=== PATIENT | female | born 1960 | race American Indian/Alaskan Native ===

== ENCOUNTER 2018-01-17 23:59 | Emergency (ER) | payer OTHER ==
[2018-01-18] VITALS: BMI 27.8
[2018-01-18 00:37] VITALS: RESP 18
--- NOTE | 2018-01-18 00:51 | ED PDOC ---
Arrival/HPI - General Historian: Patient - History of Present Illness Narrative History of Present Illness (Text): 01/18/18 00:47 57yo female with pmhx of Diabetes, hypelipdemia who present with complaint of left leg pain s/p trauma 3weeks ago. States pain radiates from her foot to her upper thigh. Notes worse focal pain over her distal posterior left thigh. States she saw her PMD and was given Gabapentin and Mobic. States taking it without relieve. She has been ambulating. Denies chest pain, SOB, diaphoresis, swelling, redness, any other complaint. <Kate Segundo A - Last Filed: 01/18/18 02:03> <Isauro Beal - Last Filed: 01/18/18 02:11> - General Chief Complaint: Lower Extremity Problem/Injury Past Medical History - Provider Review Nursing Documentation Reviewed: Yes - Infectious Disease Hx of Infectious Diseases: None - Past Medical History Past Medical History: No Previous - Cardiac Hx Cardiac Disorders: Yes Hx Hypertension: Yes - Pulmonary Hx Respiratory Disorders: No - Neurological Hx Neurological Disorder: Yes (PERIPHERAL NEUROPATHY) - HEENT Hx HEENT Disorder: No - Renal Hx Renal Disorder: No - Endocrine/Metabolic Hx Endocrine Disorders: Yes Hx Diabetes Mellitus Type 2: Yes - Hematological/Oncological Hx Blood Disorders: No Hx Blood Transfusions: No Hx Blood Transfusion Reaction: No - Integumentary Hx Dermatological Disorder: No - Musculoskeletal/Rheumatological Hx Musculoskeletal Disorders: Yes Hx Back Pain: Yes Hx Falls: No Hx Rheumatoid Arthritis: Yes - Gastrointestinal Hx Gastrointestinal Disorders: No - Genitourinary/Gynecological Hx Genitourinary Disorders: Yes Hx Urinary Tract Infection: Yes Other/Comment: Prolapsed bladder - Psychiatric Hx Psychophysiologic Disorder: No Hx Substance Use: No - Surgical History Hx Tubal Ligation: Yes Other/Comment: BLADDER PROLAPSE REPAIR - Anesthesia Hx Anesthesia: Yes Hx Anesthesia Reactions: No Hx Malignant Hyperthermia: No - Suicidal Assessment Feels Threatened In Home Enviroment: No <Kate Segundo A - Last Filed: 01/18/18 02:03> Family/Social History - Physician Review Nursing Documentation Reviewed: Yes Family/Social History: Unknown Family HX Smoking Status: Former Smoker Hx Alcohol Use: No Hx Substance Use: No Hx Substance Use Treatment: No <Kate Segundo A - Last Filed: 01/18/18 02:03> Allergies/Home Meds <Kate Segundo - Last Filed: 01/18/18 02:03> <Isauro Beal - Last Filed: 01/18/18 02:11> Allergies/Adverse Reactions: Allergies No Known Allergies Allergy (Verified 03/22/16 14:07) Home Medications: Home Meds Medication Instructions Recorded Confirmed Gabapentin [Neurontin] 1 tab PO DAILY 05/30/17 01/18/18 Simvastatin [Zocor] 1 tab PO DAILY 05/30/17 01/18/18 metFORMIN [glucOPHAGE] 1 tab PO DAILY 05/30/17 01/18/18 Review of Systems - Physician Review All systems were reviewed & negative as marked: Yes - Review of Systems Constitutional: Normal Eyes: Normal ENT: Normal Respiratory: Normal Cardiovascular: Normal Gastrointestinal: Normal Genitourinary Female: Normal Musculoskeletal: Arthralgias (LEft leg pain) Skin: Normal Neurological: Normal Endocrine: Normal Hemo/Lymphatic: Normal Psychiatric: Normal <Kate Segundo A - Last Filed: 01/18/18 02:03> Physical Exam Vital Signs Reviewed: Yes Vital Signs Temp Pulse Resp BP Pulse Ox 01/18/18 00:37 97.1 F L 73 18 138/88 100 Temperature: Afebrile Blood Pressure: Normal Pulse: Regular Respiratory Rate: Normal Appearance: Positive for: Well-Appearing, Non-Toxic, Comfortable Pain Distress: None Mental Status: Positive for: Alert and Oriented X 3 - Systems Exam Head: Present: Atraumatic, Normocephalic Pupils: Present: PERRL Extroacular Muscles: Present: EOMI Conjunctiva: Present: Normal Mouth: Present: Moist Mucous Membranes Neck: Present: Normal Range of Motion Respiratory/Chest: Present: Clear to Auscultation, Good Air Exchange. No: Respiratory Distress, Accessory Muscle Use Cardiovascular: Present: Regular Rate and Rhythm, Normal S1, S2. No: Murmurs Abdomen: No: Tenderness, Distention, Peritoneal Signs Back: Present: Normal Inspection Upper Extremity: Present: Normal Inspection. No: Cyanosis, Edema Lower Extremity: Present: NORMAL PULSES, Normal ROM, Tenderness (Focal tenderness over left posterior distal thigh), Neurovascularly Intact. No: Edema, CALF TENDERNESS, Erythema, Deformity, Temperature Abnormalties Neurological: Present: GCS=15, CN II-XII Intact, Speech Normal Skin: Present: Warm, Dry, Normal Color. No: Rashes Psychiatric: Present: Alert, Oriented x 3, Normal Insight, Normal Concentration <Kate Segundo - Last Filed: 01/18/18 02:03> Vital Signs Temp Pulse Resp BP Pulse Ox 01/18/18 00:37 97.1 F L 73 18 138/88 100 <Isauro Beal - Last Filed: 01/18/18 02:11> Medical Decision Making ED Course and Treatment: 01/18/18 02:08 PT in ED for stated history. She ambulated to ED. she does not appear in any distress in ED. Toradol Left knee xray Left leg Doppler US PEr US preliminary result - US is negative for DVT Left knee - Osteophyte on the lateral aspect. No acute finding Result was DW the pt and Tramadol rx was given. Referred to ortho. - RAD Interpretation Radiology Orders: 01/18/18 00:46 DUPLEX LOWER EXTRM VEIN LEFT [US] Stat 01/18/18 00:47 KNEE WITH PATELLA LEFT 3 VIEW [RAD] Stat <Kate Segundo A - Last Filed: 01/18/18 02:03> - RAD Interpretation Radiology Orders: 01/18/18 00:46 DUPLEX LOWER EXTRM VEIN LEFT [US] Stat 01/18/18 00:47 KNEE WITH PATELLA LEFT 3 VIEW [RAD] Stat - Medication Orders Current Medication Orders: Discontinued Medications Ketorolac Tromethamine (Toradol) 60 mg IM STAT STA Stop: 01/18/18 01:25 Last Admin: 01/18/18 01:35 Dose: 60 mg MAR Pain Assessment Document 01/18/18 01:35 ANNAMARIA (Rec: 01/18/18 01:35 Cong [id number]) Pain Reassessment Is this a pain reassessment? No Sleep Is patient sleeping during reassessment? No Presence of Pain Presence of Pain Yes Pain Scale Used Protocol: PSCALES Pain Scale Used Numeric Location Left, Right or Bilateral Right Pain Location Body Site Hip Description Description Throbbing Intensity of Pain at present 8 Acceptable Level of Pain 0 Pain Behavior Irritability Aggravating Factors ADL's IM Administration Charges Document 01/18/18 01:35 ANNAMARIA (Rec: 01/18/18 01:35 ANNAMARIA [id number]) Injection Site MAR Injection Site Left Deltoid Charges for Administration # of IM Administrations 1 <Isauro Beal - Last Filed: 01/18/18 02:11> - PA / FOILING MACHINE ADJUSTER / Resident Statement MD/DO has reviewed & agrees with the documentation as recorded. <LianIsauro - Last Filed: 01/18/18 02:11> Disposition/Present on Arrival - Present on Arrival Any Indicators Present on Arrival: No History of DVT/PE: No History of Uncontrolled Diabetes: No Urinary Catheter: No History of Decub. Ulcer: No History Surgical Site Infection Following: None - Disposition Have Diagnosis and Disposition been Completed?: Yes Disposition Time: 02:05 Patient Plan: Discharge <Kate Segundo - Last Filed: 01/18/18 02:03> <LianIsauro - Last Filed: 01/18/18 02:11> - Disposition Diagnosis: Leg pain Disposition: HOME/ ROUTINE Condition: STABLE Discharge Instructions (ExitCare): Muscle and Bone Pain (DC) Additional Instructions: Follow up with your doctor/Orthopedist Return to ED for any new or worsening symptoms Prescriptions: traMADol [Ultram] 50 mg PO Q8 #7 tab Referrals: Seamus hOara MD [Staff Provider] - Follow up with primary Forms: [employer] (Salvadorean)
[2018-01-18 02:33] VITALS: BP 131/83; PULSE 81; TEMP 97.9; O2SAT 97
--- NOTE | 2018-01-18 07:37 | RAD ---
Date of service: 01/18/2018 PROCEDURE: Left Knee Radiographs. HISTORY: Pain. COMPARISON: None. FINDINGS: BONES: No acute fracture or destructive bony lesion identified. A small exostosis under 1 cm size seen related to the medial proximal metaphysis of the left tibia. JOINTS: Joint space narrowing is appreciated at the medial femorotibial compartment compatible degenerative joint disease with minimal osteophytes at the patellofemoral articulation. No subluxation or dislocation. JOINT EFFUSION: None. OTHER FINDINGS: Punctate calcifications seen the medial upper calf subcutaneous fat. IMPRESSION: No acute fracture or dislocation left knee. Mild degenerative joint disease, bicompartmental. Small exostosis medial proximal metaphysis left tibia.
--- NOTE | 2018-01-18 10:51 | US ---
PROCEDURE: Left lower extremity venous US HISTORY: Leg pain and swelling. Evaluate for DVT. PHYSICIAN(S): Vamshi Wilekrson MD. TECHNIQUE: Duplex sonography and color-flow Doppler with graded compression were used to evaluate the deep venous system of the left lower extremity. FINDINGS: The visualized deep venous system of the left lower extremity is sonographically normal and compressible. Normal wave forms and augmentation are seen. There is no sonographic evidence for deep venous thrombosis in the visualized segments of the left lower extremity. IMPRESSION: 1. No sonographic evidence for deep venous thrombosis in the visualized segments of the left lower extremity.
== END 2018-01-18 02:33 | disposition home or self-care (01) ==
LOC: ED 23:59
DX: M79.605 Pain in left leg (principal); I10 Essential (primary) hypertension; E11.9 Type 2 diabetes mellitus without complications; Z87.891 Personal history of nicotine dependence
CPT/HCPCS: 73562; 93971; 96372; 99283; J1885

== ENCOUNTER 2018-02-18 10:40 | Emergency (ER) | payer OTHER ==
[2018-02-18 10:41] VITALS: BMI 27.8
[2018-02-18 11:08] VITALS: RESP 18; TEMP 97.6; O2SAT 99
--- NOTE | 2018-02-18 12:30 | CT ---
Date of service: 02/18/2018 PROCEDURE: CT Lumbar Spine without contrast HISTORY: bilateral leg pain, paresthesias COMPARISON: Correlations made to CT scan of the abdomen pelvis dated 04/05/2014. TECHNIQUE: Axial computed tomography images were obtained of the lumbar spine without the use of intravenous contrast. Coronal and sagittal reformatted images were created and reviewed. Radiation dose: Total exam DLP = 2196.42 mGy-cm. This CT exam was performed using one or more of the following dose reduction techniques: Automated exposure control, adjustment of the mA and/or kV according to patient size, and/or use of iterative reconstruction technique. FINDINGS: VERTEBRAE: Unremarkable. No fracture. Normal alignment. DISCS/SPINAL CANAL/NEURAL FORAMINA: L1-2: Mild broad-based disc bulge. L2-3: Mild broad-based disc bulge L3-4: Mild broad-based disc bulge. L4-5: Mild broad-based disc bulge. L5-S1: Mild broad-based disc bulge. PARASPINAL SOFT TISSUES: Unremarkable. OTHER FINDINGS: None. IMPRESSION: No acute fracture. Mild multilevel degenerative changes.
[2018-02-18 13:05] LABS: BASO # 0.01 K/mm3 (0.0-2.0); BASO % 0.2 % (0.0-3.0); EOS # 0.1 (0.0-0.7); EOS % 1.3 % (1.5-5.0); GRAN # 2.36 (1.4-6.5); GRAN % 49.2 % (50.0-68.0); HEMOGLOBIN 11.3 g/dL (12.0-16.0); LYMPH # 2.2 (1.2-3.4); LYMPH % 44.9 % (22.0-35.0); MEAN CELL VOLUME 92.8 fl (80.0-105.0); MEAN CORPUSCULAR HEMOGLOBIN 30.1 pg (25.0-35.0); MEAN CORPUSCULAR HGB CONC 32.5 g/dl (31.0-37.0); MEAN PLATELET VOLUME 9.1 fl (7.0-11.0); MONO # 0.2 (0.1-0.6); MONO % 4.4 % (1.0-6.0); RBC 3.75 10^6/uL (3.5-6.1); RED CELL DISTRIBUTION WIDTH 14.1 % (11.5-14.5); URINE BILIRUBIN NEGATIVE (NEGATIVE); URINE BLOOD NEGATIVE (NEGATIVE); URINE GLUCOSE (UA) NEGATIVE (NEGATIVE); URINE LEUKOCYTE ESTERASE NEGATIVE Leu/uL (NEGATIVE); URINE PROTEIN NEGATIVE mg/dL (<30 mg/dL); URINE UROBILINOGEN 0.2 E.U./dL (<1 E.U./dL); WHITE BLOOD COUNT 4.8 10^3/uL (4.5-11.0)
[2018-02-18 13:06] LABS: URINE APPEARANCE CLEAR (CLEAR); URINE COLOR YELLOW (YELLOW)
--- NOTE | 2018-02-18 13:07 | ED PDOC ---
Arrival/HPI - General Chief Complaint: Lower Extremity Problem/Injury Time Seen by Provider: 02/18/18 11:15 Historian: Patient - History of Present Illness Narrative History of Present Illness (Text): 58 year old female with past medical history of diabetes and rheumatoid arthritis presents to the emergency department complaining of bilateral leg pain and bilateral foot paresthesias. Patient states she awoke this morning with w orsened leg pain compared to her chronic pain along with worsened peripheral neuropathy, in Gabapentin, not taken today. Describes the neuropathy as a burning sensation on the soles of her feet, equal bilaterally. Patient states she was told she has rheumatoid arthritis recently by her primary doctor. Currently taking Mobic with some relief. States the pain is typically in her right leg but today it was in both. Described as an aching that starts in her feet and shoots up both of her legs, making it difficult to walk. She's compliant with her diabetes medication and checks her sugar daily at home. Denies fevers, chills, numbness, weakness, bowel/bladder incontinence, back pain, abdominal pain, saddle anesthesia, N/V, urinary symptoms, chest pain, SOB, any other associated symptoms. PMD: Rodney Past Medical History - Provider Review Nursing Documentation Reviewed: Yes - Infectious Disease Hx of Infectious Diseases: None - Reproductive Menopause: Yes - Past Medical History Past Medical History: No Previous - Cardiac Hx Cardiac Disorders: Yes Hx Hypertension: Yes - Pulmonary Hx Respiratory Disorders: No - Neurological Hx Neurological Disorder: Yes (PERIPHERAL NEUROPATHY) - HEENT Hx HEENT Disorder: No - Renal Hx Renal Disorder: No - Endocrine/Metabolic Hx Endocrine Disorders: Yes Hx Diabetes Mellitus Type 2: Yes - Hematological/Oncological Hx Blood Disorders: No Hx Blood Transfusions: No Hx Blood Transfusion Reaction: No - Integumentary Hx Dermatological Disorder: No - Musculoskeletal/Rheumatological Hx Musculoskeletal Disorders: Yes Hx Back Pain: Yes Hx Falls: No Hx Rheumatoid Arthritis: Yes - Gastrointestinal Hx Gastrointestinal Disorders: No - Genitourinary/Gynecological Hx Genitourinary Disorders: Yes Hx Urinary Tract Infection: Yes Other/Comment: Prolapsed bladder - Psychiatric Hx Psychophysiologic Disorder: No Hx Substance Use: No - Surgical History Hx Tubal Ligation: Yes Other/Comment: BLADDER PROLAPSE REPAIR - Anesthesia Hx Anesthesia: Yes Hx Anesthesia Reactions: No Hx Malignant Hyperthermia: No - Suicidal Assessment Feels Threatened In Home Enviroment: No Family/Social History - Physician Review Nursing Documentation Reviewed: Yes Family/Social History: No Known Family HX Smoking Status: Former Smoker Hx Alcohol Use: No Hx Substance Use: No Hx Substance Use Treatment: No Allergies/Home Meds Allergies/Adverse Reactions: Allergies No Known Allergies Allergy (Verified 02/18/18 11:08) Home Medications: Home Meds Medication Instructions Recorded Confirmed Gabapentin [Neurontin] 1 tab PO DAILY 05/30/17 02/18/18 Simvastatin [Zocor] 1 tab PO DAILY 05/30/17 02/18/18 metFORMIN [glucOPHAGE] 1 tab PO DAILY 05/30/17 02/18/18 Meloxicam [Mobic] 15 mg PO Q8 PRN 02/18/18 02/18/18 Nitrofurantoin Macrocrystals 100 mg PO Q12 02/18/18 02/18/18 [Macrobid] Review of Systems - Physician Review All systems were reviewed & negative as marked: Yes - Review of Systems Constitutional: Normal. absent: Fevers Eyes: Normal. absent: Vision Changes ENT: Normal. absent: Sore Throat, Sinus Congestion Respiratory: Normal. absent: SOB, Cough Cardiovascular: Normal. absent: Chest Pain, Palpitations, Syncope Gastrointestinal: Normal. absent: Abdominal Pain, Nausea, Vomiting Genitourinary Female: Normal. absent: Dysuria, Frequency Musculoskeletal: Arthralgias (bilateral leg pain). absent: Back Pain Skin: Normal. absent: Rash Neurological: Gait Changes (secondary to pain), Other (bilateral feet paresthesias). absent: Headache, Dizziness, Focal Weakness, Disequilibrium Endocrine: Normal Hemo/Lymphatic: Normal Psychiatric: Normal Physical Exam Vital Signs Reviewed: Yes Vital Signs Temp Pulse Resp BP Pulse Ox 02/18/18 11:05 97.6 F 71 18 128/76 99 Temperature: Afebrile Blood Pressure: Normal Pulse: Regular Respiratory Rate: Normal Appearance: Positive for: Well-Appearing, Non-Toxic, Comfortable Pain Distress: None Mental Status: Positive for: Alert and Oriented X 3 - Systems Exam Head: Present: Atraumatic, Normocephalic Pupils: Present: PERRL Extroacular Muscles: Present: EOMI Conjunctiva: Present: Normal Mouth: Present: Moist Mucous Membranes Neck: Present: Normal Range of Motion. No: Meningeal Signs, MIDLINE TENDERNESS Respiratory/Chest: Present: Clear to Auscultation, Good Air Exchange. No: Respiratory Distress, Accessory Muscle Use Cardiovascular: Present: Regular Rate and Rhythm, Normal S1, S2, Peripheal Pulses Present. No: Murmurs Abdomen: Present: Normal Bowel Sounds. No: Tenderness, Distention, Peritoneal Signs, Rebound, Guarding Back: Present: Normal Inspection. No: CVA Tenderness, Midline Tenderness, Paraspinal Tenderness Upper Extremity: Present: Normal Inspection, Normal ROM, NORMAL PULSES, N eurovascularly Intact, Capillary Refill < 2s. No: Cyanosis, Edema Lower Extremity: Present: Normal Inspection, NORMAL PULSES, Normal ROM, Tenderness (bilateral calves), Neurovascularly Intact, Capillary Refill < 2 s. No: Edema, Swelling Neurological: Present: GCS=15, CN II-XII Intact, Speech Normal, Motor Func Grossly Intact, Normal Sensory Function, Gait Normal Skin: Present: Warm, Dry, Normal Color. No: Rashes Lymphatic: No: Cervical Adenopathy Psychiatric: Present: Alert, Oriented x 3, Normal Insight, Normal Concentration, Normal Affect, Normal Mood Medical Decision Making ED Course and Treatment: Initial Plan: * CBC, CMP * UA, culture * CT Lumbar Spine * Bilateral Lower Extremity Duplex * Toradol * Reassess and Disposition 13:06 Patient reports significantly decreased pain to bilateral legs after medication Labwork unremarkable Duplex preliminary read negative for DVT CT Lumbar Spine shows degenerative changes and bulging discs Plan of care discussed with patient, and strict instructions given regarding prescriptions, importance of follow up, and signs to return to Emergency Department, to include worsening pain, bowel/bladder incontinence, saddle anesthesia, numbness, weakness, or any other new/worsening symptoms. Patient verbalizes understanding of discussion. Patient A&Ox3, ambulating with steady gait without assistance, vital signs stable for discharge home. - Lab Interpretations Lab Results: 02/18/18 13:00 Lab Results 02/18/18 13:00: Urine Color Yellow, Urine Appearance Clear, Urine pH 6.0, Ur Spe cific [place] 1.025, Urine Protein Negative, Urine Glucose (UA) Negative, Urine Ketones Negative, Urine Blood Negative, Urine Nitrate Negative, Urine Bilirubin Negative, Urine Urobilinogen 0.2, Ur Leukocyte Esterase Negative 02/18/18 13:00: WBC 4.8, RBC 3.75, Hgb 11.3 L, Hct 34.8 L, MCV 92.8, MCH 30.1, MCHC 32.5, RDW 14.1, Plt Count 259, MPV 9.1, Gran % 49.2 L, Lymph % (Auto) 44.9 H, [place] % (Auto) 4.4, Eos % (Auto) 1.3 L, Baso % (Auto) 0.2, Gran # 2.36, Lymph # (Auto) 2.2, [place] # (Auto) 0.2, Eos # (Auto) 0.1, Baso # (Auto) 0.01 - RAD Interpretation Narrative RAD Interpretations (Text): 02/18/18 13:[address]: FINDINGS: VERTEBRAE: Unremarkable. No fracture. Normal alignment. DISCS/SPINAL CANAL/NEURAL FORAMINA: L1-2: Mild broad-based disc bulge. L2-3: Mild broad-based disc bulge L3-4: Mild broad-based disc bulge. L4-5: Mild broad-based disc bulge. L5-S1: Mild broad-based disc bulge. PARASPINAL SOFT TISSUES: Unremarkable. OTHER FINDINGS: None. IMPRESSION: No acute fracture. Mild multilevel degenerative changes. Radiology Orders: 02/18/18 11:26 LUMBAR SPINE W/O CONTRAST [CT] Stat 02/18/18 12:01 DUPLEX LOWER EXTRM VEIN BILAT [US] Stat Student Counselor: Radiologist - Medication Orders Current Medication Orders: Discontinued Medications Ketorolac Tromethamine (Toradol) 60 mg IM STAT STA Stop: 02/18/18 11:25 Last Admin: 02/18/18 12:42 Dose: 60 mg MAR Pain Assessment Document 02/18/18 12:42 MALORIE (Rec: 02/18/18 12:43 MALORIE [id number]) Pain Reassessment Is this a pain reassessment? No Sleep Is patient sleeping during reassessment? No Presence of Pain Presence of Pain Yes IM Administration Charges Document 02/18/18 12:42 MALORIE (Rec: 02/18/18 12:43 MALORIE [id number]) Charges for Administration # of IM Administrations 1 Disposition/Present on Arrival - Present on Arrival Any Indicators Present on Arrival: No History of DVT/PE: No History of Uncontrolled Diabetes: No Urinary Catheter: No History of Decub. Ulcer: No History Surgical Site Infection Following: None - Disposition Have Diagnosis and Disposition been Completed?: Yes Diagnosis: Chronic leg pain, Peripheral neuropathy Disposition: HOME/ ROUTINE Disposition Time: 14:00 Condition: IMPROVED Discharge Instructions (ExitCare): Peripheral Neuropathy, Chronic Pain (DC) Additional Instructions: Followup with Dr. Stevens tomorrow Take home medications as prescribed Take Tramadol every 8 hours as needed for severe pain Followup with orthopedic doctor and neurologist within 2 days Return to ER with any new/worsening symptoms Prescriptions: traMADol [Ultram] 50 mg PO Q8 #6 tab Referrals: Anna Stevens MD [Primary Care Provider] - Follow up with primary Bob Prado DO [Staff Provider] - Follow up with primary Isaias Wray MD [Staff Provider] - Follow up with primary Forms: [employer] (Irish), WORK NOTE
[2018-02-18 13:16] LABS: ALB/GLOB RATIO 1.1 (1.1-1.8); ALBUMIN 3.9 g/dL (3.0-4.8); ALT/SGPT 33 U/L (7-56); AST/SGOT 21 U/L (14-36); BLOOD UREA NITROGEN 12 mg/dL (7-21); CALCIUM 8.9 mg/dL (8.4-10.5); GFR NON-AFRICAN AMERICAN > 60
[2018-02-18 14:23] VITALS: BP 127/80; PULSE 80
--- NOTE | 2018-02-19 12:27 | US ---
HISTORY: Leg pain and swelling. Evaluate for DVT PHYSICIAN(S): Vamshi Wilkerson MD. TECHNIQUE: Duplex sonography and color-flow Doppler with graded compression were used to evaluate the deep venous systems of both lower extremities. FINDINGS: The visualized deep venous systems of both lower extremities are sonographically normal and compressible. Normal wave forms and augmentation are seen. There is no sonographic evidence for deep venous thrombosis in the visualized segments of both lower extremities. IMPRESSION: No sonographic evidence for deep venous thrombosis in the visualized segments of both lower extremities.
== END 2018-02-18 14:24 | disposition home or self-care (01) ==
LOC: ED 10:40
DX: G62.9 Polyneuropathy, unspecified (principal); G89.29 Other chronic pain; M79.605 Pain in left leg; M79.604 Pain in right leg; I10 Essential (primary) hypertension; M06.9 Rheumatoid arthritis, unspecified; Z87.891 Personal history of nicotine dependence
CPT/HCPCS: 72131; 80053; 81003; 85025; 93970; 96372; 99283; J1885